=== PATIENT | female | born 1950 | race Caucasian/White ===

== ENCOUNTER → 2022-07-01 | Outpatient (CLI) | payer MEDICARE, OTHER, SELFPAY ==
--- NOTE | 2022-07-01 07:25 | MRI_ITS ---
HISTORY: Numbness and pain in bilateral feet, low back pain into left hip/leg, evaluate for stenosis, spondylolisthesis. TECHNIQUE: Multiplanar and multisequence MR images of the lumbar spine were obtained without intravenous contrast. 126 images. COMPARISON: None. FINDINGS: VERTEBRAE: Vertebral body heights maintained. No significant bone marrow signal abnormality. Degenerative osteophytes of T10-11 and T11-12. ALIGNMENT: No anterior or posterior subluxation. CONUS: Normal morphology and position of the conus medullaris at L1-2. INTERVERTEBRAL DISCS: T12-L1: No significant posterior disc protrusion, central canal stenosis, or foraminal narrowing based on the sagittal images. L1-2, L2-3: No significant posterior disc protrusion, central canal stenosis, or foraminal narrowing. L3-4: Minimal disc bulge with facet arthropathy. No significant central canal stenosis. Very mild right foraminal narrowing. L4-5, L5-S1: Minimal disc bulges with moderate facet arthropathy. No significant central canal stenosis. Very mild bilateral foraminal narrowing. SOFT TISSUES: Mild posterior subcutaneous edema. No paraspinal fluid collection. 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 Electronically Signed: Maria Elena Hawkins MD at 11:21 EST ,
== END | disposition home or self-care (01) ==
LOC: MRI 07:21
PROVIDERS: PCP Internal Medicine; Referring Provider Orthopaedic Surgery Orthopaedic Surgery of the Spine; Visit Provider Orthopaedic Surgery Orthopaedic Surgery of the Spine
DX: M46.1 Sacroiliitis, not elsewhere classified (principal); M48.062 Spinal stenosis, lumbar region with neurogenic claudication; M43.16 Spondylolisthesis, lumbar region
CPT/HCPCS: 72148